=== PATIENT | female | born 1955 | race Caucasian/White ===

== ENCOUNTER 2018-07-26 09:39 | Outpatient (REF) | payer BC, SELFPAY ==
[2018-07-26 13:05] LABS: ALT 128 U/L (12-78); AST 51 U/L (15-37); Albumin 3.7 g/dL (3.4-5.0); Alkaline Phosphatase 81 U/L (46-116); Bilirubin, Direct 0.09 mg/dL (0.00-0.20); Bilirubin, Total 0.4 mg/dL (0.2-1.0); Total Protein 6.9 g/dL (6.4-8.2)
== END 2018-07-26 09:59 ==
LOC: NCHCN 09:39
PROVIDERS: PCP Nurse Practitioner Family; Visit Provider Nurse Practitioner Family
DX: R74.0 Nonspecific elevation of levels of transaminase and lactic acid dehydrogenase [LDH] (principal); K76.9 Liver disease, unspecified; E78.00 Pure hypercholesterolemia, unspecified; I10 Essential (primary) hypertension
CPT/HCPCS: 80076

== ENCOUNTER 2019-02-09 09:37 | Outpatient (REF) | payer BC, SELFPAY ==
[2019-02-09 13:07] LABS: ALT 123 U/L (12-78); AST 54 U/L (15-37); Albumin 3.9 g/dL (3.4-5.0); Alkaline Phosphatase 73 U/L (46-116); Bilirubin, Direct 0.15 mg/dL (0.00-0.20); Bilirubin, Total 0.6 mg/dL (0.2-1.0)
== END 2019-02-09 09:57 ==
LOC: NCHCN 09:37
PROVIDERS: PCP Nurse Practitioner Family; Visit Provider Nurse Practitioner Family
DX: R74.0 Nonspecific elevation of levels of transaminase and lactic acid dehydrogenase [LDH] (principal); K76.9 Liver disease, unspecified; I10 Essential (primary) hypertension; E78.00 Pure hypercholesterolemia, unspecified
CPT/HCPCS: 80076

== ENCOUNTER 2019-08-22 12:23 | Outpatient (REF) | payer MEDICARE, BC, SELFPAY ==
[2019-08-22 22:00] LABS: Absolute Basophil Count 0.01 k/cumm (0.0-0.2); Absolute Eosinophil Count 0.09 k/cumm (0.0-0.7); Absolute Lymphocyte Count 1.16 k/cumm (1.2-3.4); Absolute Monocyte Count 0.35 k/cumm (0.11-0.7); Absolute Neutrophil Count 3.35 k/cumm (1.2-6.7); Basophils % 0.2; Eosinophils % 1.8; HCT 43.1 % (36.0-46.0); HGB 14.1 g/dL (12.0-15.5); Lymphocytes % 23.4; Mean Corp. HGB Concentration 32.7 g/dL (32.0-36.0); Mean Corpuscular Volume 91.7 fL (80-95); Mean Platelet Volume 9.8 fL (8.0-11.0); Monocytes % 7.1; Neutrophils % 67.5; Platelet Count 261 x1000/uL (130-400); RBC Distribution Width 12.9 % (11.7-14.6); White Blood Cell Count 4.96 k/cumm (4.4-10.8)
[2019-08-22 22:34] LABS: ALT 115 U/L (14-59); AST 50 U/L (15-37); Albumin 3.8 g/dL (3.4-5.0); Alkaline Phosphatase 77 U/L (46-116); Anion Gap 11.4 mmol/L (3-11); BUN 13 mg/dL (7-18); Bilirubin, Total 0.5 mg/dL (0.2-1.0); CO2 25.6 mmol/L (21.0-32.0); CREATININE 0.87 mg/dL (0.55-1.02); Calcium 9.4 mg/dL (8.5-10.1); Chloride 102 mmol/L (98-107); Glucose 102 mg/dL (70-100); Magnesium 1.9 mg/dL (1.8-2.4); Potassium 4.5 mmol/L (3.5-5.1); Sodium 139 mmol/L (136-145); Total Protein 6.9 g/dL (6.4-8.2); Vitamin B12 798 pg/mL (193-986)
== END 2019-08-22 12:43 ==
LOC: NCHCN 12:23
PROVIDERS: PCP Nurse Practitioner Family; Visit Provider Nurse Practitioner Family
DX: I10 Essential (primary) hypertension (principal); E78.00 Pure hypercholesterolemia, unspecified; R74.0 Nonspecific elevation of levels of transaminase and lactic acid dehydrogenase [LDH]; J44.9 Chronic obstructive pulmonary disease, unspecified; K30 Functional dyspepsia; E66.9 Obesity, unspecified; K76.9 Liver disease, unspecified
CPT/HCPCS: 80053; 82607; 83735; 85025

== ENCOUNTER 2020-02-06 08:33 | Outpatient (REF) | payer MEDICARE, BC, SELFPAY ==
[2020-02-06 19:59] LABS: CREATININE 0.96 mg/dL (0.55-1.02); Estimated GFR 58.33 (mL/min/1.73m2)
== END 2020-02-06 08:53 ==
LOC: NCHCN 08:33
PROVIDERS: PCP Nurse Practitioner Family; Visit Provider Nurse Practitioner Family
DX: I10 Essential (primary) hypertension (principal); E78.00 Pure hypercholesterolemia, unspecified; R74.0 Nonspecific elevation of levels of transaminase and lactic acid dehydrogenase [LDH]; K76.9 Liver disease, unspecified
CPT/HCPCS: 82565

== ENCOUNTER 2020-02-08 00:23 | Outpatient (CLI) | payer MEDICARE, BC, SELFPAY ==
--- NOTE | 2020-02-08 | DI.MRI_ITS ---
EXAM: MR ABDOMEN WO/W CLINICAL HISTORY: F/U DONE AT [facility], PANCREATIC LESION, K86.9 TECHNIQUE: Multiple post sequences including post gadolinium fat-suppressed T1 axial and coronal seq uences were performed. MRCP was also performed. COMPARISON: US ABDOMEN LIMITED from 10/30/2019 FINDINGS: The heart size is normal. The lung bases appear clear. No pleural or pericardial effusions are seen . The liver parenchyma is homogeneous. No liver masses are seen. There are no visible gallstones o r gallbladder wall thickening. There is no dilatation of the bile ducts or pancreatic ducts. The sp mario and adrenals appear normal. There are bilateral renal cysts, mainly parapelvic. There is no hy dronephrosis. There is no bowel dilatation or ascites. The aorta is normal in diameter. The spine shows mild degenerative disc bulging. There is there is a 5 millimeter cystic lesion seen directly adjacent to or emanating from the main p ancreatic duct in the body of the pancreas. It is difficult to see on some sequences due to small si ze. It follows water signal. There is no abnormal enhancement. No septations or mural nodules are visible. No additional pancreatic lesions are seen. IMPRESSION: 5 millimeter cyst adjacent to the main pancreatic duct in the body of the pancreas. No suspicious fe atures are seen. A follow-up ultrasound could be considered in 6 months. DATA REPOSITORY:
[2020-02-08] MEDS: Normal Saline Flush 10 ML SYR IVP (09:17)
[2020-02-08] MEDS: Gadoterate meglumine 20 ML VIAL 16 ML IVP (09:19)
== END 2020-02-08 00:43 ==
PROVIDERS: PCP Nurse Practitioner Family; Visit Provider Nurse Practitioner Family
DX: K86.2 Cyst of pancreas (principal); N28.1 Cyst of kidney, acquired
CPT/HCPCS: 74183

== ENCOUNTER 2020-08-27 09:58 | Outpatient (REF) | payer MEDICARE, BC, SELFPAY ==
[2020-08-27 22:37] LABS: ALT 67 U/L (14-59); AST 31 U/L (15-37); Albumin 3.9 g/dL (3.4-5.0); Alkaline Phosphatase 71 U/L (46-116); Anion Gap 10.2 mmol/L (3-11); BUN 18 mg/dL (7-18); Bilirubin, Total 0.6 mg/dL (0.2-1.0); CO2 24.8 mmol/L (21.0-32.0); CREATININE 0.78 mg/dL (0.55-1.02); Calcium 9.2 mg/dL (8.5-10.1); Calculated LDL 104 mg/dL (<100); Chloride 104 mmol/L (98-107); Cholesterol 170 mg/dL (<200); Glucose 109 mg/dL (74-106); HDL Cholesterol 48 mg/dL (40-60); Magnesium 1.8 mg/dL (1.8-2.4); Potassium 4.3 mmol/L (3.5-5.1); Sodium 139 mmol/L (136-145); Total Protein 6.8 g/dL (6.4-8.2); Triglyceride 92 mg/dL (<150); Vitamin B12 654 pg/mL (193-986)
== END 2020-08-27 10:18 ==
LOC: NCHCN 09:58
PROVIDERS: PCP Nurse Practitioner Family; Visit Provider Nurse Practitioner Family
DX: E66.9 Obesity, unspecified (principal); K30 Functional dyspepsia; K76.9 Liver disease, unspecified; J30.9 Allergic rhinitis, unspecified; D12.6 Benign neoplasm of colon, unspecified; F34.1 Dysthymic disorder; E78.00 Pure hypercholesterolemia, unspecified; Z00.00 Encounter for general adult medical examination without abnormal findings
CPT/HCPCS: 80053; 80061; 82607; 83735

== ENCOUNTER 2020-11-14 01:15 | Outpatient (CLI) | payer MEDICARE, BC, SELFPAY ==
--- NOTE | 2020-11-14 13:50 | DI.DEXA_ITS ---
EXAM: XR DEXA BONE DENSITY W/WO WALE CLINICAL HISTORY: SCREENING FOR OSTEOPOROSIS IN POSTMENOPAUSAL WOMAN,Z78.0 TECHNIQUE: Routine DEXA evaluation of the lumbar spine, hip, or forearm. FINDINGS: Lumbar spine total T-score:-0.7 Forearm total T-score: 0.7 Left hip total T-score: 0.4 IMPRESSION: Bone mineral density measures in the normal range. Fracture risk is low. Sign rib Note: Any spine fracture indicates 5x risk for subsequent spine fracture and 2x risk for subsequent h ip fracture. World Health Organization criteria for BMD interpretation classify patients: Normal...... T- Score at or above -1.0 Osteopenic... T- Score between -1.0 and -2.5 Osteoporosis... T-Score at or below -2.5
== END 2020-11-14 01:35 ==
PROVIDERS: PCP Nurse Practitioner Family; Visit Provider Nurse Practitioner Family
DX: Z13.820 Encounter for screening for osteoporosis (principal); Z78.0 Asymptomatic menopausal state
CPT/HCPCS: 77080

== ENCOUNTER 2021-03-04 03:22 | Outpatient (CLI) | payer MEDICARE, BC, SELFPAY ==
--- NOTE | 2021-03-04 | DI.US_ITS ---
Exam(s) US ABDOMEN EXAM: US ABDOMEN CLINICAL HISTORY: HCC SURVEILLANCE, F/U CIRRHOSIS TECHNIQUE: Ultrasound abdomen performed using standard protocol. COMPARISON: US US ABDOMEN LIMITED from 10/30/2019 US US ABDOMEN LIMITED from 10/30/2019 FINDINGS: LIVER: Coarse echotexture and mild diffusely increased echogenicity. Posterior portions of the liver are not optimally seen.. No focal liver lesions are seen.. There is mild nodularity of the liver c ontour. GALLBLADDER: No evidence of cholelithiasis. No evidence of wall thickening. No pericholecystic fluid identified. MCLAUGHLIN'S SIGN: Negative. BILIARY SYSTEM: No intrahepatic or extrahepatic biliary ductal dilation. KIDNEYS: Kidneys are symmetric in size. No evidence of renal calculi. No evidence of hydronephrosis. No renal mass or cyst identified. PANCREAS: Stable 7 x 4 x 6 millimeter cyst in the body of the pancreas. SPLEEN: Not enlarged. ABDOMINAL AORTA AND IVC: Visualized portions normal caliber. ASCITES: None seen. IMPRESSION: Mildly nodular echogenic liver. No focal mass. Stable pancreatic cyst. DATA REPOSITORY:
[2021-03-04 07:19] LABS: Abs Immature Grans 0.01 10^3/uL (0.0-0.06); Absolute Basophil Count 0.03 10^3/uL (0.0-0.2); Absolute Eosinophil Count 0.12 10^3/uL (0.0-0.7); Absolute Lymphocyte Count 1.59 10^3/uL (1.2-3.4); Absolute Monocyte Count 0.39 10^3/uL (0.1-0.8); Absolute Neutrophil Count 2.74 10^3/uL (1.2-6.7); Basophils % 0.6; Eosinophils % 2.5; HGB 13.8 g/dL (11.2-15.7); Immature Grans % 0.2; Lymphocytes % 32.6; MCH 30.1 pg (27.0-33.0); MCHC 32.9 % (32.0-36.0); MCV 91.5 fL (80-95); MPV 8.8 fL (8.0-11.0); Neutrophils % 56.1; Nucleated RBC 0 %; Platelet Count 233 10^3/uL (130-400); RBC 4.59 10^6/uL (3.93-5.22); RDW 12.6 % (11.7-14.6); RDW-SD 42.1 fL; WBC 4.88 10^3/uL (4.4-10.8)
[2021-03-04 07:28] LABS: Prothrombin Time 10.2 sec (9.3-11.0)
[2021-03-04 08:57] LABS: ALT 75 U/L (14-59); AST 37 U/L (15-37); Albumin 3.7 g/dL (3.4-5.0); Alkaline Phosphatase 79 U/L (46-116); Anion Gap 8.2 mmol/L (3-11); BUN 16 mg/dL (7-18); Bilirubin, Total 0.5 mg/dL (0.2-1.0); CO2 29.8 mmol/L (21.0-32.0); CREATININE 0.9 mg/dL (0.55-1.02); Chloride 101 mmol/L (98-107); Glucose 115 mg/dL (74-106); Potassium 4.4 mmol/L (3.5-5.1); Sodium 139 mmol/L (136-145); Total Protein 6.9 g/dL (6.4-8.2)
== END 2021-03-04 03:23 | disposition home or self-care (01) ==
LOC: LBO 03:22
PROVIDERS: PCP Nurse Practitioner Family; Visit Provider Internal Medicine Gastroenterology
DX: K74.69 Other cirrhosis of liver (principal); K76.0 Fatty (change of) liver, not elsewhere classified; K86.2 Cyst of pancreas
CPT/HCPCS: 36415; 80053; 76700; 85025; 85610

== ENCOUNTER 2021-07-01 01:24 | Outpatient (CLI) | payer MEDICARE, BC, SELFPAY ==
[2021-07-01 11:19] LABS: Source Nasal/Nares
[2021-07-01 14:14] LABS: COVID-19 PCR Negative (Negative)
== END 2021-07-01 01:25 | disposition home or self-care (01) ==
LOC: LBO 01:24
PROVIDERS: Internal Medicine Gastroenterology; PCP Nurse Practitioner Family; Visit Provider Nurse Practitioner Family
DX: Z20.822 Contact with and (suspected) exposure to COVID-19 (principal); Z01.812 Encounter for preprocedural laboratory examination
CPT/HCPCS: 87635

== ENCOUNTER 2021-08-11 00:37 | Outpatient (CLI) | payer MEDICARE, BC, SELFPAY ==
--- NOTE | 2021-08-11 | DI.US_ITS ---
Exam(s) US ABDOMEN LIMITED EXAM: US ABDOMEN LIMITED CLINICAL HISTORY: HCC SCREEN, HEPATIC CIRRHOSIS,K74.60 TECHNIQUE: Ultrasound abdomen performed using standard protocol. COMPARISON: US US ABDOMEN from 03/04/2021 FINDINGS: There is no ascites evident. LIVER: Liver is hyperechoic indicating steatosis. No discrete focal hepatic lesions identified. GALLBLADDER/BILIARY: There are no gallstones. No gallbladder wall edema nor pericholecystic fluid. The common hepatic duct isnot dilated, measuring 3-4mm at the level of anson hepatis. PANCREAS: There is no evidence of pancreatic mass nor dilatation of the pancreatic duct. RIGHT KIDNEY:No evidence of solid mass, calculus, nor hydronephrosis. No cortical cysts evident. ABDOMINAL AORTA AND IVC: Visualized portions exhibit normal caliber. IMPRESSION: 1. No evidence of cholelithiasis nor dilatation of the biliary tree. 2. Hepatic steatosis. Correlation with appropriate hepatic blood work is recommended. 3. There is no ascites. DATA REPOSITORY:
== END 2021-08-11 00:57 ==
PROVIDERS: PCP Nurse Practitioner Family; Visit Provider Internal Medicine Gastroenterology
DX: K76.0 Fatty (change of) liver, not elsewhere classified (principal); K74.69 Other cirrhosis of liver
CPT/HCPCS: 76705

== ENCOUNTER 2021-11-26 00:09 | Outpatient (CLI) | payer MEDICARE, BC, SELFPAY ==
--- NOTE | 2021-11-26 | DI.MAMMO_ITS ---
Exam(s) MAMMO SCREENING EXAM: MAMMO SCREENING CLINICAL HISTORY: SCREENING, Z12.39, FAM HX BREAST CA, Z80.3. TECHNIQUE: Bilateral full field digital CC and MLO mammographic images were obtained with 3D tomosyn thesis and utilizing computer aided detection (CAD). COMPARISON: Prior mammograms were reviewed, the most recent being November 2020. FINDINGS: There are no new significant radiograph findings in left breast. In the right breast on the 3D MLO imaging there is an oval noncalcified well-defined nodule measuring 8 by 5 millimeters located approximately 7 cm in from the nipple, slightly lateral of center. Nodul e appears similar to prior mammogram of 1 year ago but more evident than on mammograms prior to that date. Ultrasound recommended There are punctate benign-appearing microcalcifications in the right breast. There is no significant architectural distortion nor skin thickening-retraction. IMPRESSION: 1. No radiographic evidence of malignancy in left breast. 2. 8 x 5 millimeter asymmetric density-possible nodule in the right breast. Spot compression views and ultrasound are recommended. BI-RADS Category 0 - Assessment Incomplete: Need additional imaging evaluation Breast Density - Category B - Scattered areas of fibroglandular density Breast density Category C or D implies that the patient has dense breast tissue. Dense breast tissue can make it harder to find cancer on a mammogram. Dense breast tissue is also associated with an incr eased risk of breast cancer. This information about the result of the mammogram report was provided to the patient to raise their awareness. Use this report when you speak with the patient about their risks for breast cancer, which includes their family history. At that time, you may recommend additional screening tests (Ultrasoun d or MRI) as these tests may add significant information. A negative radiographic report should not delay biopsy if a dominant or clinically suspicious mass is present. Up to ten percent of cancers are not identified on mammography. A negative report may reinforce clinical impression. Adenosis and dense breasts may obscure an underlying neoplasm. False positive reports average 6 to 10%. Patient will receive a letter notifying them of these results.
== END 2021-11-26 00:29 ==
PROVIDERS: PCP Nurse Practitioner Family; Visit Provider Nurse Practitioner Family
DX: Z12.31 Encounter for screening mammogram for malignant neoplasm of breast (principal); Z80.3 Family history of malignant neoplasm of breast; R92.8 Other abnormal and inconclusive findings on diagnostic imaging of breast
CPT/HCPCS: 77063; 77067

== ENCOUNTER 2021-12-08 01:23 | Outpatient (CLI) | payer MEDICARE, BC, SELFPAY ==
--- NOTE | 2021-12-08 11:00 | DI.US_ITS ---
Exam(s) US ABDOMEN LIMITED EXAM: US ABDOMEN LIMITED CLINICAL HISTORY: HEPATIC CIRRHOSIS, K74.60; HCC SURVEILLANCE TECHNIQUE: Ultrasound abdomen performed using standard protocol. COMPARISON: US US BREAST RT COMPLETE from 12/08/2021 FINDINGS: There is no ascites evident. LIVER: There are no hepatic lesions evident nor dilatation of intrahepatic ducts. The liver appears somewhat hyperechoic indicating element of steatosis. GALLBLADDER/BILIARY: There are no gallstones. No gallbladder wall edema nor pericholecystic fluid. The common hepatic duct isnot dilated, measuring 3-4mm at the level of anson hepatis. PANCREAS: There is no evidence of pancreatic mass nor dilatation of the pancreatic duct. RIGHT KIDNEY:No evidence of solid mass, calculus, nor hydronephrosis. No cortical cysts evident. ABDOMINAL AORTA AND IVC: Visualized portions exhibit normal caliber. IMPRESSION: 1. No evidence of cholelithiasis nor dilatation of the biliary tree. 2. Hepatic steatosis. Correlation with appropriate hepatic blood work recommended. 3. There is no ascites. DATA REPOSITORY:
== END 2021-12-08 01:43 ==
PROVIDERS: PCP Nurse Practitioner Family; Visit Provider Internal Medicine Gastroenterology
DX: K74.69 Other cirrhosis of liver (principal); K76.0 Fatty (change of) liver, not elsewhere classified
CPT/HCPCS: 76705

== ENCOUNTER 2021-12-08 01:24 | Outpatient (CLI) | payer MEDICARE, BC, SELFPAY ==
--- NOTE | 2021-12-08 10:00 | DI.MAMMO_ITS ---
Exam(s) MG MAMMO SCREEN CALL BACK UNI EXAM: MAMMO SCREEN CALL BACK UNI -RIGHT AND COMPLETE RIGHT BREAST ULTRASOUND CLINICAL HISTORY: F/U ABNL MAMMO, OVAL NONCALCIFIED 8X5 MM NODULE 7 CM FROM NIPPLE RT BREAST. TECHNIQUE: Unilateral spot mammographic images obtained with 3D tomosynthesisand utilizing computer aided detection (CAD). . Complete RIGHT breast Ultrasound was also performed, including all 4 quadrants, the retroareolar kristine on, and the ipsilateral axilla. COMPARISON: Prior mammograms were reviewed. This additional imaging was performed due to findings described on the recent screening mammogram of 11/26/2021. FINDINGS: DIAGNOSTIC RIGHT BREAST MAMMOGRAM: Additional mammographic views performed todayreveals the nodule persists.Therefore proceeded with ashish lal. COMPLETE RIGHT BREAST ULTRASOUND: Ultrasound performed today reveals a solitary finding at the 6 o'clock position which is 7 by 4 jerry meter microcyst. This most probably corresponds to the nodule on the mammogram. There are no other focal ultrasound findings in all 4 quadrants nor in the retroareolar region. Scan rebecca of the ipsilateral-right axilla reveals no significant adenopathy. IMPRESSION: Benign-appearing finding in the right breast as described above. Appropriate follow-up is repeat right breast imaging in 6 months to include repeat right breast mamm ogram and ultrasound.. The patient was informed of these findings and recommendations prior to leaving the department today. BI-RADS Category 3 - 6 month - Probably Benign Finding: Recommend follow-up mammography in 6 months Breast Density - Category B - Scattered areas of fibroglandular density Breast density Category C or D implies that the patient has dense breast tissue. Dense breast tissue can make it harder to find cancer on a mammogram. Dense breast tissue is also associated with an incr eased risk of breast cancer. This information about the result of the mammogram report was provided to the patient to raise their awareness. Use this report when you speak with the patient about their risks for breast cancer, which includes their family history. At that time, you may recommend additional screening tests (Ultrasoun d or MRI) as these tests may add significant information. A negative radiographic report should not delay biopsy if a dominant or clinically suspicious mass is present. Up to ten percent of cancers are not identified on mammography. A negative report may reinforce clinical impression. Adenosis and dense breasts may obscure an underlying neoplasm. False positive reports average 6 to 10%. Patient will receive a letter notifying them of these results.
--- NOTE | 2021-12-08 10:30 | DI.US_ITS ---
Exam(s) US BREAST RT COMPLETE EXAM: US BREAST RT COMPLETE CLINICAL HISTORY: OVAL NONCALCIFIED 8X5 MM NODULE 7 CM FROM NIPPLE RT BREAST. TECHNIQUE: Complete ultrasound of the right breast was performed including all 4 quadrants, the retr oareolar region, and the ipsilateral axilla. COMPARISON: Prior mammograms were reviewed. Recent screening mammogram and today's diagnostic right breast mammogram was reviewed. FINDINGS: There is a solitary ultrasound finding in the right breast which is a 7 x 4 millimeter cyst at the 6- 7 o'clock position. This most probably corresponds to the nodule on the mammogram. There are no oth er focal ultrasound findings in all 4 quadrants. Scanning of the ipsilateral right axilla is negative for adenopathy. IMPRESSION: Benign-appearing microcyst as described above which most probably corresponds to the finding on the m ammogram. Appropriate follow-up is repeat right breast imaging in 6 months to include repeat right breast mammo gram and ultrasound.. BI-RADS Category 3 - 6 month - Probably Benign Finding: Recommend follow-up mammography in 6 months Breast Density - Category B - Scattered areas of fibroglandular density Breast density Category C or D implies that the patient has dense breast tissue. Dense breast tissue can make it harder to find cancer on a mammogram. Dense breast tissue is also associated with an incr eased risk of breast cancer. This information about the result of the mammogram report was provided to the patient to raise their awareness. Use this report when you speak with the patient about their risks for breast cancer, which includes their family history. At that time, you may recommend additional screening tests (Ultrasoun d or MRI) as these tests may add significant information. A negative radiographic report should not delay biopsy if a dominant or clinically suspicious mass is present. Up to ten percent of cancers are not identified on mammography. A negative report may reinforce clinical impression. Adenosis and dense breasts may obscure an underlying neoplasm. False positive reports average 6 to 10%. Patient will receive a letter notifying them of these results.
== END 2021-12-08 01:44 ==
PROVIDERS: PCP Nurse Practitioner Family; Visit Provider Nurse Practitioner Family
DX: R92.8 Other abnormal and inconclusive findings on diagnostic imaging of breast; N60.01 Solitary cyst of right breast; Z12.31 Encounter for screening mammogram for malignant neoplasm of breast
CPT/HCPCS: 76642; 77063; 77067

== ENCOUNTER 2021-12-08 02:48 | Outpatient (CLI) | payer MEDICARE, BC, SELFPAY ==
[2021-12-08 12:26] LABS: Prothrombin Time 10.4 sec (9.3-11.0)
[2021-12-08 12:53] LABS: Abs Immature Grans 0.02 10^3/uL (0.0-0.06); Absolute Basophil Count 0.04 10^3/uL (0.0-0.2); Absolute Eosinophil Count 0.15 10^3/uL (0.0-0.7); Absolute Lymphocyte Count 1.69 10^3/uL (1.2-3.4); Absolute Monocyte Count 0.44 10^3/uL (0.1-0.8); Absolute Neutrophil Count 3.81 10^3/uL (1.2-6.7); Basophils % 0.7; Eosinophils % 2.4; HCT 42.2 % (36.0-46.0); Immature Grans % 0.3; Lymphocytes % 27.5; MCH 30.3 pg (27.0-33.0); MCHC 33.2 % (32.0-36.0); MCV 91.3 fL (80-95); MPV 9.2 fL (8.0-11.0); Monocytes % 7.2; Neutrophils % 61.9; Nucleated RBC 0 %; Platelet Count 250 10^3/uL (130-400); RBC 4.62 10^6/uL (3.93-5.22); RDW 12.4 % (11.7-14.6); RDW-SD 41.9 fL; WBC 6.15 10^3/uL (4.4-10.8)
== END 2021-12-08 02:49 | disposition home or self-care (01) ==
LOC: LBO 02:48
PROVIDERS: PCP Nurse Practitioner Family; Visit Provider Internal Medicine Gastroenterology
DX: K74.60 Unspecified cirrhosis of liver (principal)
CPT/HCPCS: 36415; 85025; 85610

== ENCOUNTER 2022-03-03 15:21 | Outpatient (REF) | payer MEDICARE, BC, SELFPAY ==
[2022-03-03 16:08] LABS: Calculated LDL 128 mg/dL (<100); Cholesterol 196 mg/dL (<200); HDL Cholesterol 48 mg/dL (40-60); Magnesium 1.8 mg/dL (1.8-2.4); Triglyceride 100 mg/dL (<150); Vitamin B12 671 pg/mL (193-986)
== END 2022-03-03 15:22 | disposition home or self-care (01) ==
LOC: NCHCN 15:21
PROVIDERS: PCP Nurse Practitioner Family; Visit Provider Nurse Practitioner Family
DX: E66.9 Obesity, unspecified (principal); R73.03 Prediabetes; R06.83 Snoring; R61 Generalized hyperhidrosis; K30 Functional dyspepsia; I10 Essential (primary) hypertension; K74.60 Unspecified cirrhosis of liver
CPT/HCPCS: 80061; 82607; 83036; 83735

== ENCOUNTER → 2022-06-11 00:33 | Outpatient (CLI) | payer MEDICARE, BC, SELFPAY ==
--- NOTE | 2022-06-11 | DI.MAMMO_ITS ---
Exam(s) MG MAMMO DIAGNOSTIC UNI US BREAST RT LIMITED EXAM: US BREAST RT LIMITED CLINICAL HISTORY: 6 MO F/U, R92.8 TECHNIQUE: Ultrasound performed using standard protocol. COMPARISON: US US ABDOMEN LIMITED from 12/08/2021 FINDINGS: Right breast mammogram with spot compression view of the right breast and right breast ultrasound are interpreted in conjunction. Previous ultrasound examination of December 08 showed us 7 x 4 millim eter in diameter cyst of the right breast in approximately the 7 o'clock position 4 cm from the nippl e. This is again noted on today's examination and measures about 7 x 3 millimeters today. The well-circumscribed nodule is again noted mammographically. No new mass or clumped microcalcifica tion seen on today's mammogram. No change in appearance mammographically in comparison prior study . IMPRESSION: No specific evidence of malignancy at this time. I would suggest that routine screening mammographic examinations resume with a bilateral mammogram in 6 months. BI-RADS Cat 3 - 6 month - Probably Benign Finding: Recommend follow-up imaging in 6 months Breast Density - Category B - Scattered areas of fibroglandular density DATA REPOSITORY:
== END ==
PROVIDERS: PCP Nurse Practitioner Family; Visit Provider Nurse Practitioner Family
DX: R92.8 Other abnormal and inconclusive findings on diagnostic imaging of breast (principal); N60.01 Solitary cyst of right breast
CPT/HCPCS: 76642; 77061; 77065; G0279

== ENCOUNTER → 2022-06-24 09:59 | Outpatient (BNVA) | payer MEDICARE, BC, SELFPAY | PROVIDERS: PCP Nurse Practitioner Family; Referring Provider Nurse Practitioner Family; Visit Provider Physician Assistant | DX: M25.461 Effusion, right knee (principal) | CPT/HCPCS: 99203 ==

== ENCOUNTER → 2022-07-22 01:13 | Outpatient (CLI) | payer MEDICARE, BC, SELFPAY ==
--- NOTE | 2022-07-22 08:00 | DI.US_ITS ---
Exam(s) US ABDOMEN LIMITED EXAM: US ABDOMEN LIMITED CLINICAL HISTORY: CIRRHOSIS, K74.69, SECONDARY TO FATTY LIVER, K76.0 TECHNIQUE: Ultrasound abdomen performed using standard protocol. COMPARISON: US US ABDOMEN LIMITED from 12/08/2021 FINDINGS: LIVER: Normal size. Increasedechogenicity, consistent with fatty infiltration.. No focal liver lesi ons are seen.. GALLBLADDER: No evidence of cholelithiasis. No evidence of wall thickening. No pericholecystic fluid identified. MCLAUGHLIN'S SIGN: Negative. BILIARY SYSTEM: No intrahepatic or extrahepatic biliary ductal dilation. RIGHT KIDNEY: Normal size. No evidence of renal calculi. No evidence of hydronephrosis. No suspicious renal mass. No cyst identified. PANCREAS: Normal where visualized. ABDOMINAL AORTA AND IVC: Visualized portions normal caliber. ASCITES: None seen. IMPRESSION: Stable appearance hepatic steatosis. DATA REPOSITORY:
== END ==
PROVIDERS: PCP Nurse Practitioner Family; Visit Provider Internal Medicine Gastroenterology
DX: K74.69 Other cirrhosis of liver (principal); K76.0 Fatty (change of) liver, not elsewhere classified
CPT/HCPCS: 76705

== ENCOUNTER 2022-07-22 02:56 | Outpatient (CLI) | payer MEDICARE, BC, SELFPAY ==
[2022-07-22 08:06] LABS: Absolute Basophil Count 0.04 10^3/uL (0.0-0.2); Absolute Eosinophil Count 0.12 10^3/uL (0.0-0.7); Absolute Lymphocyte Count 1.45 10^3/uL (1.2-3.4); Absolute Monocyte Count 0.36 10^3/uL (0.1-0.8); Absolute Neutrophil Count 2.99 10^3/uL (1.2-6.7); Basophils % 0.8; Eosinophils % 2.4; HCT 41.7 % (36.0-46.0); HGB 13.5 g/dL (11.2-15.7); Lymphocytes % 29.2; MCH 29.8 pg (27.0-33.0); MCHC 32.4 % (32.0-36.0); MCV 92 fL (80-95); Monocytes % 7.3; Neutrophils % 60.3; Platelet Count 218 10^3/uL (130-400); RBC 4.53 10^6/uL (3.93-5.22); RDW 12.4 % (11.7-14.6); RDW-SD 42.1 fL; WBC 4.96 10^3/uL (4.4-10.8)
[2022-07-22 08:54] LABS: ALT 67 U/L (14-59); AST 35 U/L (15-37); Albumin 3.7 g/dL (3.4-5.0); Alkaline Phosphatase 74 U/L (46-116); Anion Gap 7.5 mmol/L (3-11); BUN 14 mg/dL (7-18); Bilirubin, Total 0.5 mg/dL (0.2-1.0); CO2 28.5 mmol/L (21.0-32.0); CREATININE 0.9 mg/dL (0.55-1.02); Calcium 9.4 mg/dL (8.5-10.1); Chloride 103 mmol/L (98-107); Estimated GFR 69.64 (mL/min/1.73m2); Glucose 118 mg/dL (74-106); Potassium 4.3 mmol/L (3.5-5.1); Sodium 139 mmol/L (136-145); Total Protein 7.2 g/dL (6.4-8.2)
== END 2022-07-22 02:57 | disposition home or self-care (01) ==
LOC: LBO 02:56
PROVIDERS: PCP Nurse Practitioner Family; Visit Provider Internal Medicine Gastroenterology
DX: K74.69 Other cirrhosis of liver (principal)
CPT/HCPCS: 36415; 80053; 76705; 85025; 85610

== ENCOUNTER 2022-12-25 00:45 | Outpatient (CLI) | payer MEDICARE, BC, SELFPAY ==
--- NOTE | 2022-12-25 08:00 | DI.US_ITS ---
Exam(s) US ABDOMEN LIMITED EXAM: US ABDOMEN LIMITED CLINICAL HISTORY: CIRRHOSIS OF LIVER, K74.69; NONALCOHOLIC FATTY LIVER DISEASE, K76.0 TECHNIQUE: Ultrasound abdomen performed using standard protocol. COMPARISON: US US ABDOMEN LIMITED from 07/22/2022 FINDINGS: PANCREAS: Normal where visualized. There is again seen a 6 mm cyst in the pancreas. This is unchange d compared to the examination from 07/22/2022. LIVER: There is increased echogenicity of the liver. This is consistent with fatty infiltration. He patopedal flow in the Portal Vein. The liver measures in 14.1 cm length. GALLBLADDER: No evidence of cholelithiasis. No evidence of wall thickening. No pericholecystic fluid identified. BILIARY SYSTEM: Common bile duct measures < 7 mm. No intrahepatic biliary ductal dilation. MCLAUGHLIN'S SIGN: Negative. RIGHT KIDNEY: Kidney is normal in size. No evidence of renal calculi. No evidence of hydronephrosis. No renal mass or cyst identified. ASCITES: None seen. IMPRESSION: Hepatic steatosis. DATA REPOSITORY:
== END 2022-12-25 01:05 ==
LOC: DI 00:45
PROVIDERS: PCP Nurse Practitioner Family; Visit Provider Internal Medicine Gastroenterology
DX: K74.60 Unspecified cirrhosis of liver (principal); K76.0 Fatty (change of) liver, not elsewhere classified
CPT/HCPCS: 36415; 80053; 76705; 85025; 85610

== ENCOUNTER 2022-12-25 02:45 | Outpatient (CLI) | payer MEDICARE, BC, SELFPAY ==
[2022-12-25 07:56] LABS: Abs Immature Grans 0.01 10^3/uL (0.0-0.06); Absolute Basophil Count 0.03 10^3/uL (0.0-0.2); Absolute Eosinophil Count 0.16 10^3/uL (0.0-0.7); Absolute Monocyte Count 0.54 10^3/uL (0.1-0.8); Basophils % 0.5; Eosinophils % 2.5; HCT 43.4 % (36.0-46.0); HGB 14.1 g/dL (11.2-15.7); Immature Grans % 0.2; Lymphocytes % 26.8; MCH 29.4 pg (27.0-33.0); MCHC 32.5 % (32.0-36.0); MCV 91 fL (80-95); MPV 9.2 fL (8.0-11.0); Monocytes % 8.5; Neutrophils % 61.5; Platelet Count 278 10^3/uL (130-400); RBC 4.79 10^6/uL (3.93-5.22); RDW 12.7 % (11.7-14.6); RDW-SD 42.3 fL; WBC 6.34 10^3/uL (4.4-10.8)
[2022-12-25 08:02] LABS: ALT 86 U/L (14-59); AST 44 U/L (15-37); Albumin 3.7 g/dL (3.4-5.0); Alkaline Phosphatase 76 U/L (46-116); Anion Gap 7.7 mmol/L (3-11); BUN 17 mg/dL (7-18); Bilirubin, Total 0.5 mg/dL (0.2-1.0); CO2 30.3 mmol/L (21.0-32.0); Calcium 9.4 mg/dL (8.5-10.1); Chloride 102 mmol/L (98-107); Estimated GFR 61.36 (mL/min/1.73m2); Glucose 121 mg/dL (74-106); Potassium 4.5 mmol/L (3.5-5.1); Sodium 140 mmol/L (136-145); Total Protein 7.3 g/dL (6.4-8.2)
[2022-12-25 08:03] LABS: Prothrombin Time 9.9 sec (9.3-11.0)
== END 2022-12-25 02:46 | disposition home or self-care (01) ==
LOC: LBO 02:46
PROVIDERS: PCP Nurse Practitioner Family; Visit Provider Internal Medicine Gastroenterology
DX: K74.69 Other cirrhosis of liver (principal); K76.0 Fatty (change of) liver, not elsewhere classified
CPT/HCPCS: 36415; 80053; 85025; 85610

== ENCOUNTER 2022-12-28 02:25 | Outpatient (CLI) | payer MEDICARE, BC, SELFPAY ==
--- NOTE | 2022-12-28 | DI.MAMMO_ITS ---
Exam(s) MAMMO SCREENING EXAM: MAMMO SCREENING CLINICAL HISTORY: SCREENING, Z12.31 TECHNIQUE: Bilateral full field digital CC and MLO mammographic images were obtained with 3D tomosyn thesis and utilizing computer aided detection (CAD). COMPARISON: Available for comparison. FINDINGS: Masses/Architectural Distortion: No suspicious nodules or areas of architectural distortion are prese nt. The well-circumscribed nodule in the right breast is unchanged. Microcalcifications: No suspicious pleomorphic-type are seen. Skin Thickening/Nipple Retraction: None. IMPRESSION: 1. No significant interval change with no specific features of malignancy noted. 2. Unless there is more urgent need, screening mammography is recommended, as per [place] guidelines. BI-RADS Category 1 - Negative Breast Density - Category B - Scattered areas of fibroglandular density Breast density category C or D implies that the patient has dense breast tissue. Dense breast tissue is very common and is not abnormal but dense breast tissue can make it harder to find cancer on a ma mmogram. Also, dense breast tissue may increase their breast cancer risk. This information about the result of the mammogram report was provided to the patient to raise their awareness. Use this report when you speak with the patient about their risks for breast cancer, which includes their family hist ory. At that time, you may recommend for more screening tests (Ultrasound or MRI) as they might be us eful based on their risk. A negative radiographic report should not delay biopsy if a dominant or clinically suspicious mass is present. Up to ten percent of cancers are not identified on mammography. A negative report may reinforce clinical impression. Adenosis and dense breasts may obscure an underlying neoplasm. False positive reports average 6 to 10%. Patient will receive a letter notifying them of these results.
== END 2022-12-28 02:45 ==
PROVIDERS: PCP Nurse Practitioner Family; Visit Provider Nurse Practitioner Family
DX: Z12.31 Encounter for screening mammogram for malignant neoplasm of breast (principal)
CPT/HCPCS: 77063; 77067

== ENCOUNTER 2023-04-27 10:37 | Outpatient (REF) | payer MEDICARE, BC, SELFPAY ==
[2023-04-27 14:52] LABS: Magnesium 1.9 mg/dL (1.8-2.4)
[2023-04-27 22:58] LABS: Calculated LDL 121 mg/dL (<100); Cholesterol 192 mg/dL (<200); HDL Cholesterol 49 mg/dL (40-60); Triglyceride 112 mg/dL (<150); Vitamin B12 615 pg/mL (193-986)
== END 2023-04-27 10:38 | disposition home or self-care (01) ==
LOC: NCHCN 10:37
PROVIDERS: PCP Nurse Practitioner Family; Visit Provider Nurse Practitioner Family
DX: E66.9 Obesity, unspecified (principal); R73.03 Prediabetes; R61 Generalized hyperhidrosis; K74.60 Unspecified cirrhosis of liver; J44.9 Chronic obstructive pulmonary disease, unspecified; F34.1 Dysthymic disorder; E78.00 Pure hypercholesterolemia, unspecified
CPT/HCPCS: 80061; 82607; 83735

== ENCOUNTER → 2024-01-05 01:31 | Outpatient (CLI) | payer MEDICARE, BC, SELFPAY ==
--- NOTE | 2024-01-05 | DI.MAMMO_ITS ---
Exam(s) MAMMO SCREENING EXAM: MAMMO SCREENING CLINICAL HISTORY: SCREENING, Z12.31 TECHNIQUE: Mammograms were interpreted according to the usual protocol including computer analysis w [employer] CAD system, tomosynthesis and C-view imaging. COMPARISON: 2015 through 2022 FINDINGS: The breasts are composed of scattered fibroglandular densities, Breast Density category B. No suspicious masses or suspicious microcalcifications are seen. A circumscribed nodule in the later al right breast is unchanged. No skin thickening or abnormal axillary lymph nodes are seen. There has been no significant change from prior exams. IMPRESSION: BI-RADS Category 2 - Negative Mammogram with benign findings. Yearly screening mammography is recomm ended. Breast Density - Category B, scattered fibroglandular densities. A negative radiographic report should not delay biopsy if a dominant or clinically suspicious mass is present. Up to ten percent of cancers are not identified on mammography. A negative report may reinforce clinical impression. Adenosis and dense breasts may obscure an underlying neoplasm. False positive reports average 6 to 10%. Patient will receive a letter notifying them of these results.
== END ==
PROVIDERS: PCP Nurse Practitioner Family; Visit Provider Nurse Practitioner Family
DX: Z12.31 Encounter for screening mammogram for malignant neoplasm of breast (principal)
CPT/HCPCS: 77063; 77067

== ENCOUNTER 2024-04-25 15:00 | Outpatient (REF) | payer MEDICARE, BC, SELFPAY ==
[2024-04-25 14:57] LABS: Bilirubin Negative (Negative); Blood Negative (Negative); Clarity Cloudy (Clear); Glucose Negative (Negative); Ketones Negative (Negative); Leukocyte Esterase Trace (Negative); Nitrite Positive (Negative); Specific Gravity 1.025 (1.005-1.025); Urobilinogen 0.2 mg/dL (Up to 0.2)
[2024-04-25 15:29] LABS: Bacteria Moderate HPF (Negative); C & S Indicated? No/Sq. Contamination; Epithelial Cells Moderate HPF (Negative); Mucus Trace (Negative); Other Cells Rare Renal (Negative)
[2024-04-25 16:24] LABS: COMMENT (LAB VIEW ONLY) 241.26 mg/dL; Microalb ug/mg Crea 9.5 ug/mg Cr
== END 2024-04-25 15:01 | disposition home or self-care (01) ==
LOC: NCHCN 15:00
PROVIDERS: PCP Nurse Practitioner Family; Visit Provider Nurse Practitioner Family
DX: I10 Essential (primary) hypertension (principal)
CPT/HCPCS: 81003; 81015; 82043; 82570

== ENCOUNTER 2024-05-30 18:20 | Outpatient (REF) | payer MEDICARE, BC, SELFPAY ==
[2024-05-30 16:58] LABS: Anion Gap 7.8 mmol/L (3-11); BUN 10 mg/dL (7-18); CO2 28.2 mmol/L (21.0-32.0); CREATININE 0.9 mg/dL (0.55-1.02); Calcium 9.4 mg/dL (8.5-10.1); Chloride 103 mmol/L (98-107); Estimated GFR 68.77 (mL/min/1.73m2); Glucose 142 mg/dL (74-106); Potassium 4.8 mmol/L (3.5-5.1); Sodium 139 mmol/L (136-145)
== END 2024-05-30 18:21 | disposition home or self-care (01) ==
LOC: NCHCN 18:20
PROVIDERS: PCP Nurse Practitioner Family; Visit Provider Nurse Practitioner Family
DX: I10 Essential (primary) hypertension (principal)
CPT/HCPCS: 80048

== ENCOUNTER 2025-01-05 00:10 | Outpatient (CLI) | payer MEDICARE, BC, SELFPAY ==
--- NOTE | 2025-01-05 | DI.MAMMO_ITS ---
Exam(s) MAMMO SCREENING EXAM: MAMMO SCREENING CLINICAL HISTORY: Screening, family h/o breast cancer, Z80.3 TECHNIQUE: Mammograms were interpreted according to the usual protocol including computer analysis w [employer] CAD system, tomosynthesis and C-view imaging. COMPARISON: 2015 through 2023 FINDINGS: The breasts are composed of scattered fibroglandular densities, Breast Density category B. No suspicious masses or suspicious microcalcifications are seen. Stable benign appearing circumscrib ed nodule in the lateral right breast. No skin thickening or abnormal axillary lymph nodes are seen. There has been no significant change from prior exams. IMPRESSION: BI-RADS Category 2 - Benign Findings Yearly screening mammography is recommended. Breast Density - Category B, scattered fibroglandular densities. A negative radiographic report should not delay biopsy if a dominant or clinically suspicious mass is present. Up to ten percent of cancers are not identified on mammography. A negative report may reinforce clinical impression. Adenosis and dense breasts may obscure an underlying neoplasm. False positive reports average 6 to 10%. Patient will receive a letter notifying them of these results.
== END 2025-01-05 00:30 ==
LOC: DI 00:11
PROVIDERS: PCP Nurse Practitioner Family; Visit Provider Nurse Practitioner Family
DX: Z80.3 Family history of malignant neoplasm of breast (principal); Z12.31 Encounter for screening mammogram for malignant neoplasm of breast; R92.323 Mammographic fibroglandular density, bilateral breasts; D24.1 Benign neoplasm of right breast
CPT/HCPCS: 77063; 77067

== ENCOUNTER 2025-04-27 12:05 | Outpatient (REF) | payer MEDICARE, BC, SELFPAY ==
[2025-04-27 15:10] LABS: Abs Immature Grans 0.01 10^3/uL (0.0-0.06); HCT 38.8 % (36.0-46.0); HGB 12.8 g/dL (11.2-15.7); Immature Grans % 0.2 %; MCH 29.6 pg (27.0-33.0); MCHC 33.0 % (32.0-36.0); MCV 90 fL (80-95); MPV 10.1 fL (8.0-11.0); Platelet Count 249 10^3/uL (130-400); RBC 4.32 10^6/uL (3.93-5.22); RDW 12.5 % (11.7-14.6); RDW-SD 41.9 fL; WBC 4.56 10^3/uL (4.4-10.8)
[2025-04-27 15:33] LABS: Iron 71 ug/dL (50-170); Total Iron Binding Capacity 324 ug/dL (250-450); Transferrin Sat 22 % (15-50)
[2025-04-27 16:20] LABS: ALT 104 U/L (14-59); AST 58 U/L (15-37); Albumin 3.7 g/dL (3.4-5.0); Alkaline Phosphatase 89 U/L (46-116); Anion Gap 9.4 mmol/L (3-11); BUN 13 mg/dL (7-18); Bilirubin, Total 0.5 mg/dL (0.2-1.0); CO2 26.6 mmol/L (21.0-32.0); Calcium 9.7 mg/dL (8.5-10.1); Chloride 102 mmol/L (98-107); Estimated GFR 92.41 (mL/min/1.73m2); Ferritin 111 ng/mL (8-252); Glucose 132 mg/dL (74-106); Potassium 4.7 mmol/L (3.5-5.1); Sodium 138 mmol/L (136-145); TSH (W/Ref FT4) 1.56 uIU/mL (0.36-3.74); Total Protein 6.7 g/dL (6.4-8.2); Vitamin D 25 Total 40 ng/mL (30-100)
[2025-04-30 08:44] LABS: Lyme Ab w Rflx to Lyme Confirm Negative (Negative)
[2025-04-30 16:15] LABS: B. miyamotoi PCR Negative (Negative); Babesia divergens/MO-1 Negative (Negative); Ehrlichia muris eauclairensis Negative (Negative)
== END 2025-04-27 12:06 | disposition home or self-care (01) ==
LOC: NCHCN 12:05
PROVIDERS: PCP Nurse Practitioner Family; Visit Provider Nurse Practitioner Family
DX: R53.82 Chronic fatigue, unspecified (principal)
CPT/HCPCS: 80053; 82306; 87798; 82728; 83540; 83550; 84443; 85025; 86618